=== PATIENT | male | born 1975 | race Caucasian/White ===

== ENCOUNTER 2022-09-25 04:35 | Day surgery (SDC) | payer OTHER ==
[2022-09-23 12:57] VITALS: BMI 26.7
[2022-09-25 09:12] VITALS: TEMP 97.5
[2022-09-25 10:26] VITALS: BP 115/72; PULSE 55; RESP 14
== END 2022-09-25 11:45 | disposition home or self-care (01) ==
LOC: JASU-ENDO 04:35
PROVIDERS: ATTEND Internal Medicine Gastroenterology
PROC: 0DJD8ZZ Inspection of Lower Intestinal Tract, Via Natural or Artificial Opening Endoscopic (ICD-10-PCS; principal; 2022-09-25 09:00)
DX: Z12.11 Encounter for screening for malignant neoplasm of colon (principal); K64.8 Other hemorrhoids